=== PATIENT | male | born 1970 | race American Indian/Alaskan Native ===

== ENCOUNTER 2017-04-18 17:35 | Emergency (ER) | payer OTHER ==
[2017-04-18 17:40] VITALS: TEMP 98.2
--- NOTE | 2017-04-18 18:28 | RAD ---
PROCEDURE: Right Foot Radiographs. No HISTORY: injury to foot swelling laterally COMPARISON: None. FINDINGS: BONES: There is an old fracture deformity at the base of the distal phalanx of the great toe. There is no acute displaced fracture or bone destruction. Bone alignment is normal. There is a dorsal calcaneal enthesophyte. JOINTS: Normal. SOFT TISSUES: Normal. OTHER FINDINGS: None. IMPRESSION: No acute displaced fracture or dislocation.
--- NOTE | 2017-04-18 18:34 | RAD ---
PROCEDURE: Radiographs of the right tibia and fibula. HISTORY: ankle injury and pain laterally COMPARISON: None available. TECHNIQUE: Frontal and lateral views obtained. FINDINGS: BONES: No fracture or destructive lesion. JOINT SPACES: Unremarkable. OTHER FINDINGS: None. IMPRESSION: Unremarkable radiographs of the right tibia and fibula.
--- NOTE | 2017-04-18 18:35 | RAD ---
PROCEDURE: Right Ankle Radiographs. HISTORY: ankle injury and pain COMPARISON: None FINDINGS: BONES: Normal. No fracture. JOINTS: Normal. No osteoarthritis. Ankle mortise maintained. Talar dome intact SOFT TISSUES: Lateral soft tissue swelling. OTHER FINDINGS: None. IMPRESSION: No acute fracture identified. Lateral soft tissue swelling noted.
--- NOTE | 2017-04-18 19:01 | C.PDOC ---
History Of Present Illness 46 yr old male presents to the ER stating around 10am this morning he was going down the stairs when he missed the last step and twisted his right ankle. Patient states he was able to walk on it, however the pain has worsened. Denies complete fall, head injury, leg pain, weakness or numbness. Time Seen by Provider: 04/18/17 17:50 Chief Complaint (Nursing): Lower Extremity Problem/Injury History Per: Patient History/Exam Limitations: no limitations Onset/Duration Of Symptoms: Sudden Onset (10 am in the morning) Past Medical History Reviewed: Historical Data, Nursing Documentation, Vital Signs Vital Signs: Last Vital Signs Temp 98.2 F 04/18/17 17:40 Pulse 70 04/18/17 19:22 Resp 16 04/18/17 19:22 BP 129/85 04/18/17 19:22 Pulse Ox 97 04/18/17 20:23 Family History: States: No Known Family Hx - Social History Hx Tobacco Use: Yes Hx Alcohol Use: No Hx Substance Use: No - Immunization History Hx Tetanus Toxoid Vaccination: Yes Hx Influenza Vaccination: Yes Hx Pneumococcal Vaccination: Yes Review Of Systems Except As Marked, All Systems Reviewed And Found Negative. Musculoskeletal: Positive for: Other ((+) Right ankle pain.). Negative for: Leg Pain Neurological: Negative for: Weakness, Numbness Physical Exam - Physical Exam Appears: Non-toxic, No Acute Distress Skin: Warm, Dry, No Rash Head: Atraumatic, Normacephalic Oral Mucosa: Moist Extremity: No Calf Tenderness, Capillary Refill (<2 sec), Other (Right Ankle - Moderate swelling to lateral malleolus with tenderness. ) Extremity: Bilateral: Normal Color And Temperature Pulses: Left Dorsalis Pedis: Normal, Right Dorsalis Pedis: Normal Neurological/Psych: Oriented x3, Normal Speech, Normal Motor, Normal Sensation Gait: Steady ED Course And Treatment O2 Sat by Pulse Oximetry: 97 (RA) Pulse Ox Interpretation: Normal - Other Rad X-Ray - Right Tibia & Fibula X-Ray: Viewed By Me, Read By Radiologist Interpretation: PROCEDURE: Radiographs of the right tibia and fibula. HISTORY : ankle injury and pain laterally. COMPARISON: None available. TECHNIQUE: Frontal and lateral views obtained. FINDINGS: BONES: No fracture or destructive lesion. JOINT SPACES: Unremarkable. OTHER FINDINGS: None. IMPRESSION: Unremarkable radiographs of the right tibia and fibula. X-Ray - Right Ankle X-Ray: Viewed By Me, Read By Radiologist Interpretation: PROCEDURE: Right Ankle Radiographs. HISTORY: ankle injury and pain. COMPARISON: None. FINDINGS: BONES: Normal. No fracture. JOINTS: Normal. No osteoarthritis. Ankle mortise maintained. Talar dome intact. SOFT TISSUES: Lateral soft tissue swelling. OTHER FINDINGS: None. IMPRESSION: No acute fracture identified. Lateral soft tissue swelling noted. X-Ray - Right Foot X-Ray: Viewed By Me, Read By Radiologist Interpretation: PROCEDURE: Right Foot Radiographs. No. HISTORY: injury to foot swelling laterally. COMPARISON: None. FINDINGS: BONES: There is an old fracture deformity at the base of the distal phalanx of the great toe. There is no acute displaced fracture or bone destruction. Bone alignment is normal. There is a dorsal calcaneal enthesophyte. JOINTS: Normal. SOFT TISSUES: Normal. OTHER FINDINGS: None. IMPRESSION: No acute displaced fracture or dislocation. Progress Note: Ankle stirrup applied and crutchs given to the patient. Medical Decision Making Medical Decision Making: PLAN: * X-Ray - Right Tibia & Fibula, Right Ankle, Right Foot * Tylenol PO Disposition - Disposition Referrals: Emerson Montiel MD [Staff Provider] - Cornelia Villatoro DPM [Staff Provider] - Disposition: HOME/ ROUTINE Disposition Time: 19:04 Condition: STABLE Additional Instructions: Follow up with the Orthopedist within 1 week if pain persists. Stay off the leg , ice and elevate at home. Prescriptions: Ibuprofen [Motrin] 600 mg PO TID #21 tab Instructions: Ankle Sprain (ED) Forms: [facility] (I[place]ic) - Clinical Impression Clinical Impression: Right ankle sprain - PA / NEGATIVE STRIPPER / Resident Statement MD/DO has reviewed & agrees with the documentation as recorded. - Scribe Statement The provider has reviewed the documentation as recorded by the Scribe Ju Castaneda All medical record entries made by the Maiaibketan were at my direction and personally dictated by me. I have reviewed the chart and agree that the record accurately reflects my personal performance of the history, physical exam, medical decision making, and the department course for this patient. I have also personally directed, reviewed, and agree with the discharge instructions and disposition.
[2017-04-18 19:23] VITALS: BP 129/85; PULSE 70; RESP 16
[2017-04-18 20:23] VITALS: O2SAT 97
== END 2017-04-18 19:22 | disposition home or self-care (01) ==
LOC: C.ER 17:35
DX: S93.401A Sprain of unspecified ligament of right ankle, initial encounter (principal); W10.8XXA Fall (on) (from) other stairs and steps, initial encounter; Y93.89 Activity, other specified; Y92.89 Other specified places as the place of occurrence of the external cause